=== PATIENT | male | born 1945 | race Caucasian/White ===

== ENCOUNTER → 2017-02-16 | Day surgery (SDC) | payer MEDICARE, OTHER ==
[~2017-02-16] MED LIST: AMBIEN10 MG PO; ASCORBIC ACID500 MG PO; ASPIRIN EC81 MG PO; BETAPACE (GENER80 MG PO; CPAP INH; DURAGESIC 25MC25 MCG TOP; KRILL OIL 3001 EACH PO; LIPITOR80 MG PO; LOPRESSOR25 MG PO; NEURONTIN600 MG PO; PERCOCET [ROXIC1 TAB PO; VITAMIN D1000 UNIT PO; XARELTO20 MG PO; ZESTRIL2.5 MG PO; ZOLOFT100 MG PO
== END | disposition disaster alternative care site (69) ==
LOC: GPOC 02-13 14:00
PROC: B02B1ZZ Computerized Tomography (CT Scan) of Spinal Cord using Low Osmolar Contrast (ICD-10-PCS; principal; 2017-02-16)
DX: M48.06 Spinal stenosis, lumbar region (principal); M47.816 Spondylosis without myelopathy or radiculopathy, lumbar region; I44.2 Atrioventricular block, complete; I25.10 Atherosclerotic heart disease of native coronary artery without angina pectoris; I48.0 Paroxysmal atrial fibrillation; I10 Essential (primary) hypertension; G47.33 Obstructive sleep apnea (adult) (pediatric); Z79.01 Long term (current) use of anticoagulants; Z79.899 Other long term (current) drug therapy; Z88.0 Allergy status to penicillin; Z88.5 Allergy status to narcotic agent; Z98.890 Other specified postprocedural states